=== PATIENT | female | born 1940 | race Caucasian/White ===

== ENCOUNTER → 2016-12-22 | Outpatient (CLI) | payer OTHER, MEDICARE ==
[2016-05-06 14:45] VITALS: BP 166/86
--- NOTE | 2016-12-22 14:39 | MRI ---
HISTORY: Degenerative lumbar disc. Study: MRI lumbar spine without contrast. Comparison: None. Technique: Multiplanar multi-sequence MRI of the lumbar spine was obtained. Sagittal T1, sagittal T 2, and stir weighted images, axial T1, and axial T2 images were obtained. Findings: Straightening of the normal lumbar lordosis. No obvious fracture or listhesis. Multilevel disc desic cation with moderate disc height loss at L3 through L5. Associated type 2 Modic endplate changes. 1. 7 cm T1/T2 bright focus within the L3 vertebral body. This most likely represents a benign hemangiom a. Otherwise, the visualized bone marrow signal appears normal. The conus medullaris terminates at L 1. Simple appearing cysts and extrarenal pelvises are seen within the bilateral kidneys. L1 -- L2: No significant disc bulge, neural foraminal narrowing, or spinal canal stenosis. L2 -- L3: No significant disc bulge, neural foraminal narrowing, or spinal canal stenosis. L3 -- L4: Broad-based disk bulge that extends into the lateral recesses causing moderate bilateral n eural foraminal narrowing. No significant spinal canal stenosis. L4 -- L5: Broad-based disk bulge that extends into the lateral recesses causing moderate bilateral n eural foraminal narrowing. No significant spinal canal stenosis. L5 -- S1: Broad-based disk bulge that extends into the lateral recesses causing severe left and mode rate right neural foraminal narrowing. No significant spinal canal stenosis. There is displacement a nd compression of the left descending S1 nerve root. The nerve root otherwise demonstrates normal si gnal characteristics. IMPRESSION: Multilevel degenerative changes of the lumbar spine, which are worse at L3 through S1 wi th broad-based disc bulges causing moderate to severe neural foraminal narrowing. No significant spi nal canal stenosis. Reported By:
== END ==
LOC: RAD 13:14
PROVIDERS: ATTEND Specialist
DX: M51.36 Other intervertebral disc degeneration, lumbar region (principal)
CPT/HCPCS: 72148

== ENCOUNTER 2017-01-05 12:54 | Day surgery (SDC) | payer OTHER, MEDICARE ==
[2017-01-05] MEDS ORDERED: MARCAINE/EPINEPHRINE ONE (13:48)
[2017-01-05] MEDS ORDERED: KENALOG INJ 40 MG ONE (13:48)
--- NOTE | 2017-01-05 13:51 | DR.UPDATE ---
H&P Update History and Physical Update: History and Physical reviewed and patient examined. Changes noted: NO Yes with the following: Agree with Dr Portillo H&P. will proceed with interlaminar JAE at L3-4 or L4-5
[2017-01-05 14:16] VITALS: BP 142/77
== END 2017-01-05 14:25 | disposition home or self-care (01) | DRG 552 ==
LOC: SURG1 12:54
PROVIDERS: ATTEND Specialist
PROC: 3E0R3BZ Introduction of Anesthetic Agent into Spinal Canal, Percutaneous Approach (ICD-10-PCS; principal; 2017-01-05 13:15)
PROC: 3E0R33Z Introduction of Anti-inflammatory into Spinal Canal, Percutaneous Approach (ICD-10-PCS; principal; 2017-01-05 13:15)
PROC: B01BZZZ Fluoroscopy of Spinal Cord (ICD-10-PCS; principal; 2017-01-05 13:15)
DX: M51.36 Other intervertebral disc degeneration, lumbar region (principal)
CPT/HCPCS: 62323; 76000; S0020; J3301